=== PATIENT | female | born 1965 | race Caucasian/White ===

== ENCOUNTER 2018-05-05 08:45 | Emergency (ER) | payer BC ==
[2018-05-05 10:15] LABS: Urine Appearance Clear; Urine Blood Negative (Negative); Urine Color Yellow; Urine Ketones Negative (Negative); Urine Protein Negative (Negative); Urine Specific Gravity 1.018 (1.010-1.030); Urine Urobilinogen Negative (Negative)
[2018-05-05 10:54] VITALS: BP 94/59
--- NOTE | 2018-05-09 06:41 | ED ---
Raffi Meade Tiffany, scribed for Rosalino Aggarwal MD on 05/05/18 at 0923 . GI/ HPI - HPI Summary HPI Summary: 53 year old F presenting to [facility] complains of burning with urination since one week ago. The patient rates the pain 1/10 in severity. Symptoms aggravated by nothing. Symptoms alleviated by nothing. Patient reports urinary frequency. Denies fever, diaphoresis, chills, abdominal pain, back pain. - History of Current Complaint Chief Complaint: EDUrogenitalProblems Time Seen by Provider: 05/05/18 09:15 Stated Complaint: ABD DISCOMFORT/ FREQUENT URINATION Hx Obtained From: Patient Onset/Duration: Started Weeks Ago - 1, Still Present Timing: Constant Current Severity: Mild Pain Intensity: 1 Associated Signs and Symptoms: Positive: Negative - fever, chills, diaphoresis, abdominal pain, back pain, Other: - frequency Aggravating Factor(s): Nothing Alleviating Factor(s): Nothing - Allergy/Home Medications Allergies/Adverse Reactions: Allergies Allergy/AdvReac Type Severity Reaction Status Date / Time No Known Allergies Allergy Verified 01/15/15 11:23 Home Medications: Home Medications Alendronate Sodium 70 mg PO WEEKLY 05/05/18 [History Confirmed 05/05/18] Calcium 1,000 + D3 Caplet 1 tab PO DAILY 05/05/18 [History Confirmed 05/05/18] Mercaptopurine 50 mg PO DAILY 05/05/18 [History Confirmed 05/05/18] Mesalamine 1 tab PO BID 05/05/18 [History Confirmed 05/05/18] Zolpidem Tartrate 5 mg PO BEDTIME 05/05/18 [History Confirmed 05/05/18] PMH/Surg Hx/FS Hx/Imm Hx Previously Healthy: No Endocrine/Hematology History: Reports: Hx Anemia Denies: Hx Diabetes Cardiovascular History: Denies: Hx Congestive Heart Failure, Hx Hypertension, Hx Pacemaker/ICD GI History: Reports: Hx Crohn's Disease History: Denies: Hx Renal Disease Musculoskeletal History: Denies: Hx Osteoporosis Sensory History: Denies: Hx Hearing Aid Psychiatric History: Reports: Hx Depression, Other Psychiatric Issues/Disorders - insomnia Denies: Hx Panic Disorder - Surgical History Surgery Procedure, Year, and Place: PARTIAL THYROIDECTOMY. TONSILECTOMY Infectious Disease History: No Infectious Disease History: Denies: Traveled Outside the [place] in Last 30 Days - Family History Known Family History: Positive: Cardiac Disease - Social History Alcohol Use: None Hx Substance Use: No Substance Use Type: Reports: None Hx Tobacco Use: No Smoking Status (MU): Never Smoked Tobacco Review of Systems Negative: Fever, Chills, Skin Diaphoresis Negative: Erythema Negative: Sore Throat Negative: Chest Pain Negative: Shortness Of Breath, Cough Negative: Abdominal Pain, Vomiting, Nausea Positive: burning, frequency. Negative: incontinence Musculoskeletal: Negative - Back pain Negative: Myalgia, Edema Negative: Rash Neurological: Negative - Dizziness All Other Systems Reviewed And Are Negative: Yes Physical Exam - Summary Physical Exam Summary: Constitutional: Well-developed, Well-nourished, Alert. (-) Distressed Skin: Warm, Dry HENT: Normocephalic; Atraumatic Eyes: Conjunctiva normal Neck: Musculoskeletal ROM normal neck. (-) JVD, (-) Stridor, (-) Tracheal deviation Cardio: Rhythm regular, rate normal, Heart sounds normal; Intact distal pulses; The pedal pulses are 2+ and symmetric. Radial pulses are 2+ and symmetric. (-) Murmur Pulmonary/Chest wall: Effort normal. (-) Respiratory distress, (-) Wheezes, (-) Rales Abd: Soft, (-), epigastric tenderness, (-) Distension, (-) Guarding, (-) Rebound Musculoskeletal: (-) Edema Lymph: (-) Cervical adenopathy Neuro: Alert, Oriented x3 Psych: Mood and affect Normal Triage Information Reviewed: Yes Vital Signs On Initial Exam: Initial Vitals Temp Pulse Resp BP Pulse Ox 99.2 F 61 14 105/64 99 05/05/18 09:07 05/05/18 09:07 05/05/18 09:07 05/05/18 09:07 05/05/18 09:07 Vital Signs Reviewed: Yes Diagnostics - Vital Signs Vital Signs Temp Pulse Resp BP Pulse Ox 05/05/18 09:07 99.2 F 61 14 105/64 99 - Laboratory Lab Statement: Any lab studies that have been ordered have been reviewed, and results considered in the medical decision making process. GIGU Course/Dx - Course Course Of Treatment: 53 year old F c/o burning with urination since one week ago. UA obtained, negative for UTI. Urine cultures are still pending. Given the patients symptomatology and current use of immune system suppressants, she will be started on empiric antibiotics. Patient will be discharged home with prescription for Bactrium and follow up from PCP. Instructed to return to ED for new or worsening symptoms. - Diagnoses Differential Diagnoses - Female: Urinary Tract Infection Provider Diagnoses: Dysuria Discharge - Sign-Out/Discharge Documenting (check all that apply): Discharge/Admit/Transfer - Discharge - Discharge Plan Condition: Stable Disposition: HOME Prescriptions: Sulfamethox/Trimethoprim DS* [Bactrim DS 800/160 TAB*] 1 tab PO BID #10 tab Patient Education Materials: Dysuria (ED) Referrals: Fazal Chavira MD [Primary Care Provider] - 2 Days Additional Instructions: Follow up with your primary care provider in 2-3 days. RETURN TO THE EMERGENCY DEPARTMENT FOR CHANGING OR WORSENING SYMPTOMS. The documentation as recorded by the amie, Stefanie Nugent SCRIBE accurately reflects the service I personally performed and the decisions made by , Rosalino Aggarwal MD.
== END 2018-05-05 10:40 | disposition home or self-care (01) ==
LOC: ED 08:45
DX: R30.0 Dysuria (principal); D64.9 Anemia, unspecified; K50.90 Crohn's disease, unspecified, without complications
CPT/HCPCS: 81003; 81015; 87086; 99282